=== PATIENT | female | born 1960 | race Caucasian/White ===

== ENCOUNTER → 2020-10-02 13:17 | Outpatient (BNVA) | payer OTHER, SELFPAY | PROVIDERS: PCP Internal Medicine; Visit Provider Physician Assistant | DX: S63.501A Unspecified sprain of right wrist, initial encounter (principal); S93.402A Sprain of unspecified ligament of left ankle, initial encounter; Y08.89XA Assault by other specified means, initial encounter | CPT/HCPCS: 73110; 73630; 99203 ==

== ENCOUNTER → 2020-10-11 14:02 | Outpatient (BNVA) | payer OTHER, SELFPAY | PROVIDERS: PCP Internal Medicine; Visit Provider Physician Assistant Medical | DX: S63.501A Unspecified sprain of right wrist, initial encounter (principal); S93.402A Sprain of unspecified ligament of left ankle, initial encounter; X58.XXXA Exposure to other specified factors, initial encounter | CPT/HCPCS: 99213 ==

== ENCOUNTER → 2020-10-18 11:56 | Outpatient (BNVA) | payer OTHER, SELFPAY | PROVIDERS: PCP Internal Medicine; Visit Provider Physician Assistant Medical | DX: S63.501D Unspecified sprain of right wrist, subsequent encounter (principal); S93.402D Sprain of unspecified ligament of left ankle, subsequent encounter; X58.XXXD Exposure to other specified factors, subsequent encounter | CPT/HCPCS: 99213 ==

== ENCOUNTER → 2020-10-25 11:51 | Outpatient (BNVA) | payer OTHER, SELFPAY | PROVIDERS: PCP Internal Medicine; Visit Provider Physician Assistant Medical | DX: S63.501D Unspecified sprain of right wrist, subsequent encounter (principal); S93.402A Sprain of unspecified ligament of left ankle, initial encounter; X58.XXXA Exposure to other specified factors, initial encounter | CPT/HCPCS: 99213 ==

== ENCOUNTER 2020-11-01 10:21 | Outpatient (REF) | payer OTHER, SELFPAY ==
--- NOTE | ~2020-11-01 | MR_ITS ---
EXAMINATION: MR WRIST WITHOUT CONTRAST, RIGHT CLINICAL INFORMATION: Right wrist twisting injury with persistent pain and paresthesia. Patient reports work injury 09/23/2020 with weakness in naturopath, numbness and tingling in fingers. COMPARISON: XR right wrist 10/02/2020. TECHNIQUE: MRI of the wrist was performed using routine sequences on a high-field scanner. FINDINGS: TRIANGULAR FIBROCARTILAGE: There is mild fraying of the proximal and distal surfaces of the central triangular fibrocartilage. No discrete tear is identified. The ulnar band attachments appear intact. INTRINSIC LIGAMENTS: There is diffuse degenerative irregularity of the scapholunate ligament. This is most prominent in the aza-nm-[id number] aspect where there is also swelling. There may be superimposed fraying. There is no discrete full-thickness tear. The lunotriquetral ligament is not well seen but no discrete tear is identified. TENDONS/MEDIAN NERVE: Intact. ARTICULAR CARTILAGE/BONE: Intact. JOINT FLUID/SOFT TISSUES: Within normal limits. MR/MR wrist RT wo con IMPRESSION: 1. Mild swelling of the proximal and distal surfaces of the central triangular fibrocartilage. No discrete tear. 2. Moderate degenerative irregularity of the scapholunate ligament with some swelling of the tcg-wx-ymikz aspect. Possible superimposed fraying. No definite discrete tear.
== END 2020-11-01 10:22 | disposition home or self-care (01) ==
LOC: HO.MRI 10:21
PROVIDERS: Visit Provider Internal Medicine
DX: M25.531 Pain in right wrist (principal); R20.2 Paresthesia of skin
CPT/HCPCS: 73221

== ENCOUNTER → 2020-11-08 10:39 | Outpatient (BNVA) | payer OTHER, SELFPAY | PROVIDERS: PCP Internal Medicine; Visit Provider Physician Assistant Medical | DX: S69.91XD Unspecified injury of right wrist, hand and finger(s), subsequent encounter (principal); S93.402D Sprain of unspecified ligament of left ankle, subsequent encounter; X58.XXXD Exposure to other specified factors, subsequent encounter; R60.1 Generalized edema | CPT/HCPCS: 99213 ==

== ENCOUNTER → 2020-11-20 10:26 | Outpatient (BNVA) | payer OTHER, SELFPAY | PROVIDERS: Visit Provider Orthopaedic Surgery | DX: M25.531 Pain in right wrist (principal) | CPT/HCPCS: 99202 ==

== ENCOUNTER → 2020-11-22 11:55 | Outpatient (BNVA) | payer OTHER, SELFPAY | PROVIDERS: Visit Provider Physician Assistant Medical | DX: S69.91XD Unspecified injury of right wrist, hand and finger(s), subsequent encounter (principal); S93.402D Sprain of unspecified ligament of left ankle, subsequent encounter; S63.591D Other specified sprain of right wrist, subsequent encounter; X58.XXXD Exposure to other specified factors, subsequent encounter | CPT/HCPCS: 99213 ==

== ENCOUNTER → 2020-12-06 11:25 | Outpatient (BNVA) | payer OTHER, SELFPAY | PROVIDERS: Visit Provider Physician Assistant Medical | DX: S93.402D Sprain of unspecified ligament of left ankle, subsequent encounter (principal); S69.91XD Unspecified injury of right wrist, hand and finger(s), subsequent encounter; X58.XXXD Exposure to other specified factors, subsequent encounter | CPT/HCPCS: 99213 ==

== ENCOUNTER 2020-12-12 11:00 | Outpatient (RCR) | payer OTHER, SELFPAY ==
--- NOTE | 2020-10-11 16:14 | MHC.PT.EP ---
[facility] Office [place] Office [place] Office [address] Zeenat Vieira [address] [phone] F: [phone] F: [phone] F: [phone] F: [phone] Physical Therapy Plan of Care Date of Evaluation: Date of Surgery: 09/23/20 Diagnosis: L ankle sprain Assessment: pt appears to have hyperplantarflexion injury w/ inversion sprain component. pt presents to physical therapy with pain, decreased range of motion, decreased strength, impaired functional mobility, impaired postural awareness, and gait deviations. pt is a good candidate for skilled PT due to age, potential remediation of impairments, typical disease/condition progression and prognosis, comorbidities, and motivation. pt would benefit from tailored strengthening and stretching exercise program, functional training, gait training, postural re-training, neuromuscular re-education, modalities as needed for pain, equipment safety demonstration. Frequency and Duration: The patient will be seen 2x/wk for 6 wks Short Term Goals: pt will be I w/ HEP to promote self-management of condition. pt will improve L ankle dorsiflexion to neutral to remediate gait impairments on even ground. Residential Goals: pt will report a statistically significant improvement in her self-reported outcome measure, LEFI, to promote return to PLOF. pt will report <1/10 L ankle pain w/ >2500' of ambulation w/ LRAD to promote pain-free return to work. Treatment Plan: Modalities to reduce pain, spasms and effusion. Manual therapy to restore motion and function. Therapeutic exercise to improve strength and flexibility. Neuromuscular re-education for posture and balance. Therapeutic activities to return to functional activities of daily living. Electronically signed by: Leola Gutierres PT, DPT Please sign and return to therapist. Thank you for your referral.
--- NOTE | 2021-01-01 11:24 | MHC.PT.DC ---
[facility] Office [place] Office [place] Office [address] Zeenat Vieira [address] [phone] F: [phone] F: [phone] F: [phone] F: [phone] Physical Therapy Discharge Report Diagnosis: L ankle sprain Date of Surgery: 09/23/20 DOI Date of Evaluation: 10/11/20 Date of Discharge: 01/01/21 Treatments to Date: 11 Cancellations to Date: 8 No Shows to Date: 1 Discharge Status: Visit Non-compliance Discharge Summary: The patient has not followed up with any further appointments in three weeks. She was still reporting high levels of pain limiting her ability to ambulate and perform activities around her home. She is discharged from this physical therapy plan of care due to visit non-compliance. Electronically signed by: Leola Gutierres PT, DPT Please sign and return to therapist. Thank you for your referral.
== END 2021-01-01 11:24 | disposition home or self-care (01) ==
LOC: HO.PT 11:00
PROVIDERS: Visit Provider Physician Assistant Medical
DX: S93.402A Sprain of unspecified ligament of left ankle, initial encounter (principal)
CPT/HCPCS: 97110; 97161; 97164; 97530

== ENCOUNTER 2020-12-18 14:12 | Outpatient (REF) | payer OTHER, SELFPAY ==
--- NOTE | ~2020-12-18 | MR_ITS ---
EXAMINATION: MR ANKLE, LEFT CLINICAL INFORMATION: Pain of left ankle and foot. History of twisting injury 09/23/2020. The patient reports pain predominantly along the top of the foot to ankle. COMPARISON: Radiographs of the foot from 10/02/2020. TECHNIQUE: Noncontrast multiplanar, multisequence MR imaging examination of the ankle and proximal foot was performed on a high-field magnet. FINDINGS: TENDONS: The Achilles tendon is normal. No tendon tear or retrocalcaneal bursitis. No inflammation within Kager's fat pad. The peroneal, flexor, extensor and tibialis tendons are intact. Small amount of fluid is present within the flexor hallucis longus tendon sheath as it courses around the region of the ankle, and the tendon sheath fluid is observed to the level of Chalino's knot. This amount of fluid in the tendon sheath can represent normal variation and does not necessarily indicate tenosynovitis. PLANTAR FASCIA: Normal. LIGAMENTS: At the lateral ankle, the talofibular and calcaneofibular ligaments are intact. At the medial ankle, the superficial and deep deltoid ligaments are intact. The spring ligament complex is normal. The bifurcated ligament and Lisfranc ligament are unremarkable. BONES, JOINTS, ARTICULAR CARTILAGE: Bones have normal alignment at the ankle and examined foot. Articular cartilage of the ankle is preserved. No bone bruise, osteochondral fracture, or ankle joint effusion. No tarsal coalition. No fracture or subluxation at the Chopart or Lisfranc joints. SINUS TARSI, TARSAL TUNNEL, SOFT TISSUES: The fat planes of the sinus tarsi are well preserved. The ligaments of the sinus tarsi are intact. Also, fat planes are maintained within the tarsal tunnel. No evidence of ganglion cyst or other soft tissue mass. MR/MR ankle LT wo con IMPRESSION: No specific source of pain is detected. No evidence of ankle ligamentous injury, bone bruise or fracture. No evidence of tendon injury or inflammatory changes of the dorsal soft tissues of the foot or ankle.
== END 2020-12-18 14:13 | disposition home or self-care (01) ==
LOC: HO.MRI 14:12
PROVIDERS: PCP Internal Medicine; Visit Provider Internal Medicine
DX: M25.572 Pain in left ankle and joints of left foot (principal)
CPT/HCPCS: 73721

== ENCOUNTER → 2020-12-20 11:27 | Outpatient (BNVA) | payer OTHER, SELFPAY | PROVIDERS: PCP Internal Medicine; Visit Provider Physician Assistant Medical | DX: S93.401D Sprain of unspecified ligament of right ankle, subsequent encounter (principal); S69.92XD Unspecified injury of left wrist, hand and finger(s), subsequent encounter; X58.XXXD Exposure to other specified factors, subsequent encounter | CPT/HCPCS: 99213 ==

== ENCOUNTER → 2021-01-03 11:34 | Outpatient (BNVA) | payer OTHER, SELFPAY | PROVIDERS: PCP Internal Medicine; Visit Provider Physician Assistant Medical | DX: M79.672 Pain in left foot (principal); S63.501D Unspecified sprain of right wrist, subsequent encounter; X58.XXXD Exposure to other specified factors, subsequent encounter | CPT/HCPCS: 99213 ==

== ENCOUNTER → 2021-01-17 11:58 | Outpatient (BNVA) | payer OTHER, SELFPAY | PROVIDERS: PCP Internal Medicine; Visit Provider Physician Assistant Medical | DX: M79.672 Pain in left foot (principal); S63.501D Unspecified sprain of right wrist, subsequent encounter; X58.XXXD Exposure to other specified factors, subsequent encounter | CPT/HCPCS: 99213 ==

== ENCOUNTER 2021-01-23 10:30 | Outpatient (RCR) | payer OTHER, SELFPAY ==
--- NOTE | 2020-12-10 11:25 | MHC.OT.OEV ---
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 She was seen by Dr Holliday for surgical consult, but improving and no surgical intervention needed at this time, ortho notes likely compression of superficial radial nerve. She was also referred for imaging, see below for details. TRIANGULAR FIBROCARTILAGE: There is mild fraying of the proximal and distal surfaces of the central triangular fibrocartilage. No discrete tear is identified. The ulnar band attachments appear intact. INTRINSIC LIGAMENTS: There is diffuse degenerative irregularity of the scapholunate ligament. This is most prominent in the mjo-gx-glpfw aspect where there is also swelling. There may be superimposed fraying. There is no discrete full-thickness tear. The lunotriquetral ligament is not well seen but no discrete tear is identified. TENDONS/MEDIAN NERVE: Intact. ARTICULAR CARTILAGE/BONE: Intact. JOINT FLUID/SOFT TISSUES: Within normal limits. MR/MR wrist RT wo con IMPRESSION: 1. Mild swelling of the proximal and distal surfaces of the central triangular fibrocartilage. No discrete tear. 2. Moderate degenerative irregularity of the scapholunate ligament with some swelling of the ala-bb-vvfew aspect. Possible superimposed fraying. No definite discrete tear. 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 Does lifting (reposition in bed, uses michelle lift) Living Situation, Family and/or Social Support: Lives w/ daughter at home (pt in grad school to be an OT) Current Level of Function and Occupation Self Care, Employment, Leisure: Currently out of work, trouble opening containers (soda bottle tops) Drops items frequently due to weakness Sleep: Difficulty sleeping, wakes w/ numbness in hand/digits Driving: Favors left hand to hold steering wheel Vision: Balance: Pain Assessment Pain Score: 2 Pain Scale Used: Numeric (0 - 10) Pain Location and Description: No pain at rest Tenderness to palpate distal DRUJ and dorsal radial wrist Aggravating Factors: Twisting, heavy use Alleviating Factors: Tylenol Ice Heating pad Skin and Soft Tissue Assessment Skin and Soft Tissue: Comments: Mild edema in dorsal hand Nerve assessment Ulnar Nerve: WFL Median Nerve: WFL Radial Nerve: WFL Comments: Sensory Assessment Temperature: Light Touch: Proprioception: Vibration: Comments: B/L palm 3.61 Right hand dorsum 2.83 Left hand dorsum 3.61 Pt reports intermittent numbness in D1-D3, worse at nighttime Edema Assessment Upper Extremity: Lower Extremity: Comments: B/L wrist distal to ulnar styloid 14.8 cm Mild focal edema to right hand dorsum Dexterity Assessment Dexterity: Comments: Nine Hole Peg Right 25 sec Left 22 sec Special Tests Comments: (-) Finklesteins (-) Fovea press test (-) Scaphoid shift test (-) Piano Mcpherson test (+) Phalen's test AROM(PROM) Strength Cervical Cervical Flexion: Cervical Extension: Cervical Lateral Flexion: Cervical Rotation: Comments: WFL Shoulder Flexion: Extension: Abduction: Internal Rotation: External Rotation: Comments: WFL Flexion: Extension: Abduction: Internal Rotation: External Rotation: Comments: Elbow Flexion: Extension: Pronation: Supination: Comments: WFL Flexion: Extension: Pronation: Supination: Comments: Wrist Flexion: R 72 L 74 Extension: R 62 L 64 Ulnar Deviation: Radial Deviation: Comments: Mild pain w/ wrist extension, radiates dorsally hand to forearm Flexion: Extension: Ulnar Deviation: Radial Deviation: Comments: WFL Thumb Thumb CMC Flexion: Thumb MCP Flexion: Thumb IP Flexion: Radial Abduction: Palmar Abduction: Malaga (Kapandji 0-10): Comments: WFL Digits Index MCP: PIP: DIP: Long MCP: PIP: DIP: Ring MCP: PIP: DIP: Small MCP: PIP: DIP: Comments: WFL Mild intrinsic tightness Gross Grasp: R 30lb L 52lb Lateral Pinch: R 10 L 10 Two-Point Pinch: R 3 L 5 Three-Jaw Praful: R 4 L 10 Comments: Patient Education Primary Language: Frisian Director Financial Analysis Required: No Current Knowledge: Understands information with skills for self-management Teaching Method: Demonstration Handouts Verbal Education Needs Identified on Evaluation: ADL's Disease Information Equipment Use Exercise Pain Safety How did patient/family demonstrate learning? Patient demonstrates Patient verbalizes Barriers to Learning: None Readiness for Learning: Accepting Who was educated? Patient Comments: Plan of Care Assessment: 60 yo female presents about 11 weeks s/p work injury when resident grabbed her wrist and compressed and twisted it while trying to get through a door into the cellar. She was seen in [facility] and referred to [facility] for further assessment. MRI shows mild swelling in central TFCC and mild degenerative changes in scapholunate ligament, but otherwise no acute injuries or need for surgical intervention. On assessment, she does have mild signs and symptoms of dorsal radial superficial sensory nerve compression and mild carpal tunnel compression, also notes waking at night with increased numbness and tingling. Range is grossly WFL, strength is decreased and she reports dropping items. She will benefit from cont'd therapy services to address these issues, with goal of returning to work and full functional use of right hand. 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 Goals: Right gross grasp >50lb Quickdash score <35 pts Pt to return to work duties Progress to active strengthening program of right wrist Frequency and Duration: The patient will be seen 2x/wk for 4 wks Treatment Plan: Therapeutic Exercise Therapeutic Activity Home Exercise Program Splinting Neuro Re-ed Patient Education Desensitization/Sensory Re-ed Edema Control ADL Training Ultrasound Iontophoresis Paraffin Fluidotherapy MHP Cold Packs Soft Tissue Mobilization Kinesiotaping Electronically Signed By: Iliana Chowdhury OTR/L Reviewed/agree with student documentation: N/A Therapist: Please sign and return to therapist, Thank you for your referral.
--- NOTE | 2021-01-02 13:15 | MHC.OT.OP ---
[address] [phone] F: [phone] Occupational Therapy Progress Note Diagnosis: Right wrist strain Date of Evaluation: 12/10/20 Treatments to Date: 7 Subjective: I was thinking it just hasn't gotten any better Pain Score: 4 Pain Location: right wrist and volar forearm, weakness and numbness Objective Measures: Tenderness in volar foreram, possible median nerve compression at FDS Gross grasp 60 lb Functional Dexterity Test: R 28 sec (moderate function) L 26 sec (normal function) Status: Progressing Assessment: Shani continues to have moderate pain in right forearm, also reporting numbness in median and ulnar nerve distribution and c/o hand and UE weakness. She has some improvements in hand tingling w/ nighttime orthosis, but elbow flexion tendencies while sleeping may also be contributing to symptoms. We will continue OT to address neuropathies. 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
--- NOTE | 2021-01-23 10:53 | MHC.OT.DC ---
[address] [phone] F: [phone] Occupational Therapy Discharge Note Provider: Dr Richmond Diagnosis: Right wrist strain Date of Evaluation: 12/10/20 Date of Discharge: 01/23/21 Treatments to Date: 10 Discharge Status: Recommend MD Follow-up Discharge Summary: Shani was referred to OT for right forearm and wrist pain and numbness. She reports comfort w/ orthosis for median nerve and lumbrical involvement. Good carry over w/ HEP, but no significant change in S/S if median nerve injury, possible higher involvement. Electronically Signed By: Iliana Chowdhury, OTR/L Please Sign and return to therapist, thank you for your referral.
== END 2021-01-23 10:54 | disposition home or self-care (01) ==
LOC: HO.OT 10:30
PROVIDERS: Visit Provider Internal Medicine
DX: M25.531 Pain in right wrist (principal)
CPT/HCPCS: 29125; 97033; 97035; 97110; 97165; 97760

== ENCOUNTER → 2021-02-06 10:45 | Outpatient (BNVA) | payer OTHER, SELFPAY | PROVIDERS: PCP Internal Medicine; Visit Provider Physician Assistant Medical | DX: M79.672 Pain in left foot (principal); M25.572 Pain in left ankle and joints of left foot; S69.91XD Unspecified injury of right wrist, hand and finger(s), subsequent encounter; X58.XXXD Exposure to other specified factors, subsequent encounter | CPT/HCPCS: 99213 ==

== ENCOUNTER 2021-03-27 09:02 | Outpatient (REF) | payer OTHER, SELFPAY ==
--- NOTE | 2021-03-27 09:07 | EMG_ITS ---
Right median and ulnar motor and sensory studies were performed. Right radial sensory study was performed and paraspinal muscles were tested. IMPRESSION: Mild right ulnar neuropathy across cubital tunnel. MD BHUMI Gimenez/MARIANNE / [id number]
== END 2021-03-27 09:03 | disposition home or self-care (01) ==
LOC: HO.NEURO 09:02
PROVIDERS: Visit Provider Internal Medicine
DX: S63.521D Sprain of radiocarpal joint of right wrist, subsequent encounter (principal); X50.1XXD Overexertion from prolonged static or awkward postures, subsequent encounter
CPT/HCPCS: 95886; 95909

== ENCOUNTER → 2021-04-15 09:23 | Outpatient (BNVA) | payer OTHER, SELFPAY | PROVIDERS: PCP Internal Medicine; Visit Provider Orthopaedic Surgery | DX: R20.0 Anesthesia of skin (principal); R20.2 Paresthesia of skin | CPT/HCPCS: 99212 ==

== ENCOUNTER → 2021-04-21 10:08 | Outpatient (BNVA) | payer OTHER, SELFPAY | PROVIDERS: PCP Internal Medicine; Visit Provider Internal Medicine | DX: R20.2 Paresthesia of skin (principal) | CPT/HCPCS: 99214 ==

== ENCOUNTER → 2021-05-05 12:56 | Outpatient (BNVA) | payer OTHER, SELFPAY | PROVIDERS: PCP Internal Medicine; Visit Provider Internal Medicine | DX: R20.0 Anesthesia of skin (principal) | CPT/HCPCS: 99213 ==

== ENCOUNTER → 2021-05-20 08:56 | Outpatient (BNVA) | payer OTHER, SELFPAY | PROVIDERS: PCP Internal Medicine; Visit Provider Internal Medicine | DX: G56.21 Lesion of ulnar nerve, right upper limb (principal) | CPT/HCPCS: 99202 ==

== ENCOUNTER → 2021-05-27 12:53 | Outpatient (BNVA) | payer OTHER, SELFPAY | PROVIDERS: PCP Internal Medicine; Visit Provider Internal Medicine | DX: G56.21 Lesion of ulnar nerve, right upper limb (principal) | CPT/HCPCS: 99213 ==

== ENCOUNTER → 2021-06-09 09:08 | Outpatient (BNVA) | payer OTHER, SELFPAY | PROVIDERS: PCP Internal Medicine; Visit Provider Internal Medicine | DX: G56.21 Lesion of ulnar nerve, right upper limb (principal) | CPT/HCPCS: 99213 ==

== ENCOUNTER → 2021-06-24 10:00 | Outpatient (BNVA) | payer OTHER, SELFPAY | PROVIDERS: PCP Internal Medicine; Visit Provider Internal Medicine | DX: G56.21 Lesion of ulnar nerve, right upper limb (principal) | CPT/HCPCS: 99213 ==

== ENCOUNTER 2021-07-01 08:30 | Outpatient (RCR) | payer OTHER, SELFPAY ==
--- NOTE | 2021-06-03 11:58 | MHC.OT.OEV ---
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 DISCHARGED FROM OUTPATIENT OT IN JANUARY 2021 FOR WORK RELATED INJURY INVOLVING MEDIAN AND RADIAL NERVE COMPRESSION. EMG nerve conduction study is positive only for mild right ulnar neuropathy across the cubital tunnel. 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 USING DEONDRE LIFT FOR SOME PATIENTS. AFTER INITIAL RETURN TO WORK (EARLY APRIL 2021), Pt PLACED IN HOMES WITH LIMITED LIFTING NEEDS. HOBBIES: ENJOYS READING, GARDENING, WALKING Living Situation, Family and/or Social Support: LIVES WITH DAUGHTER (CURRENTLY IN GR[employer]CHOOL FOR OT) Current Level of Function and Occupation Self Care, Employment, Leisure: OUT OF WORK. TROUBLE WITH HOLDING BOOK, TABLET AND CELL PHONE IN FLEXED POSITION. TROUBLE WITH LIFTING CASES OF WATER, LAUNDRY BASKET, UNABLE TO LABORATORY CHEMIST 11 LB DOG. DAUGHTER ASSISTING WITH HEAVY LIFTING. PURCHASED SPLINT FROM [employer] WITH POOR FIT, ALSO USING ROLLED TOWEL AT ELBOW JOINT TO PREVENT FLEXION Sleep: USING ROLLED TOWEL TO BLOCK RIGHT ELBOW FROM FLEXING; SEVERE DIFFICULTIES WITH SLEEPING Driving: PAINFUL, INCREASED NUMBNESS TINGLING WHEN RIGHT ELBOW / ARM FLEXED WITH DRIVING Pain Assessment Pain Score: 5-7/10 Pain Scale Used: Numeric (0 - 10) Pain Location and Description: RIGHT ARM: ULNAR DISTRIBUTION OF FOREARM FROM WRIST TO ELBOW SORE, ACHY, PINS AND NEEDLES Aggravating Factors: PROLONGED FLEXED ELBOW - DRIVING, READING BOOKS, PHONE USE; LIFTING AND CARRYING ITMES Alleviating Factors: HEAT, ICE, TYLENOL Sensory Assessment Temperature: Light Touch: Right Impaired Proprioception: Vibration: Comments: REPORTS NUMBNESS AND TINGLING THROUGH SMALL AND RING FINGER THROUGH PALM, FOREARM AND TO MEDIAL ELBOW CONTINUE TO ASSESS SEMMES MANOHAR ASSESSMENT WITH FOLLOW UP SESSIONS DUE TO TIME LIMITATIONS Edema Assessment Upper Extremity: WNL Lower Extremity: Comments: CIRCUMFERENCE AT OLECRANON PROCESS: 23.1 CM B/L'LY Dexterity Assessment Dexterity: WFL Comments: DENIES DIFFICULTIES WITH ADLs AT HOME Special Tests Comments: (-) TINELS AT MEDIAL ELBOW AROM(PROM) Strength Elbow Flexion: Extension: Pronation: Supination: Comments: WFL Flexion: Extension: Pronation: Supination: Comments: Digits Index MCP: PIP: DIP: Long MCP: PIP: DIP: Ring MCP: PIP: DIP: Small MCP: PIP: DIP: Comments: Gross Grasp: R 40, L 52 Lateral Pinch: R 12, L 12 Two-Point Pinch: Three-Jaw Praful: Comments: Patient Education Primary Language: Urdu Residence Hall Director Required: No Current Knowledge: Understands information with skills for self-management Teaching Method: Demonstration Handouts Phone Call Verbal Education Needs Identified on Evaluation: ADL's Disease Information Equipment Use Exercise Pain How did patient/family demonstrate learning? Patient demonstrates Patient verbalizes Barriers to Learning: None Readiness for Learning: Accepting Who was educated? Patient Comments: Plan of Care Assessment: RIRI PRESENTS WITH S/S CONSISTENT WITH CUBITAL TUNNEL SYNDROME. SHE REPORTS INCREASED NUMBNESS AND TINGLING WHEN DOMINANT RIGHT ELBOW IS FLEXED FOR A PROLONGED AMOUNT OF TIME, INCLUDING DRIVING AND SLEEPING. PATIENT REPORTS A 63% LIMITATION PER THE QUICK DASH ASSESSMENT. A LONG ARM ELBOW FLEXION BLOCK SPLINT WAS FABRICATED AT HER EVALUATION, WELL EDUCATION ON JOINT PROTECTION AND ULNAR NERVE GLIDES. ADDITIONAL OT SERVICES ARE WARRANTED TO ACHIEVE OPTIMAL FUNCTIONAL LEVEL AND ALLOW FOR A SAFE RETURN TO WORK WITH FOCUS ON WORK CONDITIONING TASKS. 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 STRENGTH >60 POUNDS DEMO PROPER LIFTING AND CARRYING SKILLS WITH ABOUT 20 POUNDS REPORT <3/10 PAIN WITH IADLs QUICK DASH <50% REPORT MILD NUMBNESS, TINGLING SYMPTOMS REPORT MILD DIFFICULTIES WITH SLEEPING Frequency and Duration: The patient will be seen 2X/WEEK FOR 4 WEEKS Treatment Plan: Therapeutic Exercise Therapeutic Activity Home Exercise Program Splinting Neuro Re-ed Patient Education Desensitization/Sensory Re-ed Edema Control ADL Training Ultrasound NMES Iontophoresis Paraffin Fluidotherapy MHP Cold Packs Joint Mobilization Soft Tissue Mobilization Kinesiotaping Electronically Signed By: EDILBERTO UPTON OTR/L Reviewed/agree with student documentation: N/A Therapist: Please sign and return to therapist, Thank you for your referral.
--- NOTE | 2021-07-09 08:54 | MHC.OT.DC ---
[address] [phone] F: [phone] Occupational Therapy Discharge Note Provider: Thomas Mcneil Diagnosis: R CUBITAL TUNNEL Date of Evaluation: 06/02/21 Date of Discharge: 07/09/21 Treatments to Date: 7 Cancellations to Date: 3 Discharge Status: Improved Function Independent with HEP Discharge Summary: [facility] WAS SEEN IN OUTPATIENT OT IN WHICH AN ELBOW FLEXION BLOCKING SPLINT WAS FABRICATED, INSTRUCTED ON SYMPTOM MANAGEMENT, HEP AND JOINT PROTECTION. Pt WAS TOLERATING THER EX WELL AND USING ORTHOSIS AT NIGHT TO MAINTAIN ELBOW EXTENSION. SHE REPORTED LOW PAIN AND PRODUCED A FUNCTIONAL GRASP/STRENGTH. PATIENT IS BEING TRANSITIONED TO A HOME BASED PROGRAM AT THIS TIME AND AWAITING ORTHO APPOINTMENT WITH [facility] ON 07/25/21. D/C OT SERVICES. Electronically Signed By: LUCIO LOPEZ/iMl Reviewed/agree with student documentation: N/A Therapist: Please Sign and return to therapist, thank you for your referral.
== END 2021-07-09 08:55 | disposition home or self-care (01) ==
LOC: HO.OT 08:30
PROVIDERS: PCP Internal Medicine; Visit Provider Internal Medicine
DX: G56.01 Carpal tunnel syndrome, right upper limb (principal)
CPT/HCPCS: 29105; 97035; 97110; 97140; 97166; 97760

== ENCOUNTER → 2021-07-14 12:57 | Outpatient (BNVA) | payer OTHER, SELFPAY | PROVIDERS: PCP Internal Medicine; Visit Provider Internal Medicine | DX: G56.21 Lesion of ulnar nerve, right upper limb (principal) | CPT/HCPCS: 99213 ==

== ENCOUNTER → 2022-12-01 14:48 | Outpatient (BNVA) | payer OTHER, SELFPAY | PROVIDERS: PCP Internal Medicine; Visit Provider Hospitalist ==

== ENCOUNTER 2023-08-13 12:45 | Outpatient (REF) | payer MEDICARE, OTHER, SELFPAY ==
--- NOTE | ~2023-08-13 | CT_ITS ---
EXAMINATION: CT CHEST WITHOUT CONTRAST CLINICAL INFORMATION: Pulmonary nodule COMPARISON: None available. TECHNIQUE: Multidetector volumetric CT imaging of the chest was done. Axial MIP volume rendering provided. Sagittal and coronal reformatted images were obtained. This CT examination was performed using dose optimization techniques as appropriate, variously including the following: *Automated exposure control *Adjustment of mA and/or kV according to patient size (this includes techniques or standardized protocols for targeted exams where dose is matched to indication/reason for exam; i.e. extremities or head) *Use of iterative reconstruction technique DLP: 146 mGy-cm FINDINGS: ENERGY TRADER: Unremarkable LUNGS: There is single right lower lobe solid nodule measured 0.3 cm image 234 series 5 the rest of lungs are clear. There is a triangular-shaped nodule seen abating the major fissure in the left lower lobe, measured 0.4 cm, most likely benign lymph node. Central airways are patent. Linear atelectasis seen in the left lower lobe and lingula. MEDIASTINUM: The mediastinum is normal. CORONARY ARTERY CALCIFICATION: None visualized on this study. PLEURA: There is no pleural effusion. No pleural mass or thickening. AXILLA: No lymphadenopathy. UPPER ABDOMEN: Liver is of within normal attenuation, without intrahepatic masses or ductal dilatation seen OSSEOUS STRUCTURES: Unremarkable. CT/CT chest wo IV con IMPRESSION: 1. Single solid 0.3 cm nodule in the right lower lobe and a benign-appearing nodule in the left lower lobe, most likely benign lymph node. 2. Linear atelectasis in the lingula and left lower lobe. Per the 2017 revised Fleischner Society guidelines, no routine follow up is necessarily required in low-risk patients, and consideration of [address] is recommended for patients at high-risk for the development of pulmonary neoplasm.
== END 2023-08-13 12:46 | disposition home or self-care (01) ==
LOC: HO.CT 12:45
PROVIDERS: PCP Internal Medicine; Visit Provider Hospitalist
DX: R91.8 Other nonspecific abnormal finding of lung field (principal)
CPT/HCPCS: 71250

== ENCOUNTER 2023-08-19 13:05 | Outpatient (AMB) | payer MEDICARE, OTHER, SELFPAY ==
[2023-08-19 13:10] VITALS: PULSE 90; O2SAT 96; BMI 27.5
--- NOTE | 2023-08-19 13:10 | A.OFFVIS_ITS ---
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 Her symptoms are off and on. The cough is nonproductive in nature. Uknf-nn-joxrrvge severity. She is concerned because of the risk of cancer. Therefore she had an x-ray and subsequently a CT scan of the chest that was personally by me. The CT scan was back in August 2022. Patient has multiple pulmonary nodules noted the largest nodule measuring 4 mm in size in the right side. Other subcentimeter pulmonary nodules noted. The patient needs a repeat CT scan August 2023. The patient also is concerned about mold. She does have known allergies. She did type try Zy rtec but it caused her to have mood changes so therefore she stopped it. I will send her singular. She also has a rescue inhaler. She is going to monitor her peak flows. If she notices that the Singulair is not helpful and she continues to have low peak flows she can always call the office and also on a very maintenance inhaler. Her pulmonary function studies are a reassuring within normal limits no evidence of any obstructive nor restrictive lung disease and diffusing capacity is normal. If everything is well and she is responding well to therapy will follow-up in August after her CT scan. 08/19/2023 the patient is here for a pulmo nary follow-up visit. The patient overall well. She does still have some chest tightness at times. Has some shortness of breath in addition to cough. Cnea-pc-tzpvlscq severity. We did review her last CT scan demonstrating still pulmonary nodules. She does have some atelectasis and scarring but minimal and unchanged. Will go ahead and start her on a maintenance inhaler this time since she continues to be symptomatic. We did go over the instructions on how to use inhaler. The patient should return in a year to repeat the CT scan and make sure the stability of the pulmonary nodules for couple years specially with her smoking history. [facility] Medical History (Updated 08/19/23 @ 13:13 by Jackson Reyes MD) Atelectasis Pulmonary nodules Allergies Dyspnea Chronic cough Social History (Updated 04/15/21 @ 10:06 by Carly Dennison 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: RT handed/ [employer] Review of Systems Const Denies fever(s) ENT Reports nasal congestion Card Denies chest pain and Reports dyspnea on exertion Resp Denies chest congestion, Reports cough, Reports dyspnea on exertion and Denies wheezing GI Reports no additional complaints Musc Reports no additional complaints Skin/Breast Denies rash Neuro Reports no additional complaints Sam/Lymph Denies easy bleeding, Denies easy bruising and Denies lymphadenopathy Aller/Immun Denies wheezing Physical Exam Vital Signs: Last Vital Signs Pulse 90 08/19/23 13:10 Pulse Ox 96 08/19/23 13:10 Oxygen Delivery Method Room Air 08/19/23 13:10 BMI result Body Mass Index 27.5 Const General: comfortable Orientation/consciousness: patient oriented x3 HEENT Head: Yes atraumatic Neck Neck: Yes supple Chest Chest palpation & inspection: normal inspection of the chest Resp Effort & Inspection: normal respiratory effort Auscultation: no wheezes and diminished lung sounds Cardio Rate: regular rate Rhythm: regular rhythm Heart sounds: S1 normal heart sound present and S2 normal heart sound present GI Palpation (GI): Soft to palpation Skin General skin exam: no rashes or lesions noted Neuro General: patient oriented x3 Extrem General: Yes no clubbing, cyanosis or edema Assessment & Plan Assessment & Plan (1) Chronic cough: Code(s): R05.3 - Chronic cough (2) Dyspnea: Code(s): R06.00 - Dyspnea, unspecified Qualifiers: Dyspnea type: dyspnea on exertion Qualified Code(s): R06.09 - Other forms of dyspnea (3) Allergies: Code(s): T78.40XA - Allergy, unspecified, initial encounter Qualifiers: Encounter type: subsequent encounter Qualified Code(s): T78.40XD - Allergy, unspecified, subsequent encounter (4) Pulmonary nodules: Code(s): R91.8 - Other nonspecific abnormal finding of lung field (5) Atelectasis: Comment: both bases, likely some degree of scarring. Could have been the results of covid19 Code(s): J98.11 - Atelectasis Plan continue TRACY as needed continue Singulair continue nasal steroid spray start Breo daily Benzonates as needed for cough continue regular exercise and deep breathing exercises peak flow provided, if no better will call the office to optimize therapy CT chest 1 yr F/U 1 yr Orders: Orders CT chest wo IV con 11 Months R91.8 - Other nonspecific abnormal finding of lung field Medications: New fluticasone furoate-vilanterol 200-25 mcg/dose (Breo Ellipta) 1 inh inhalation DAILY 60 ea 11RF 30 days J45.909 - Unspecified asthma, uncomplicated Coding Level of Care Code Est Pt Level 4 (72163) Diagnoses Chronic cough R05.3 Dyspnea on exertion R06.09 Dyspnea type: dyspnea on exertion Allergy, subsequent encounter T78.40XD Encounter type: subsequent encounter Pulmonary nodules R91.8 Atelectasis J98.11 Time Spent (min) 17
== END 2023-08-19 13:29 | disposition home or self-care (01) ==
PROVIDERS: PCP Internal Medicine; Visit Provider Hospitalist
DX: R05.3 Chronic cough (principal); R06.09 Other forms of dyspnea; T78.40XD Allergy, unspecified, subsequent encounter; R91.8 Other nonspecific abnormal finding of lung field; J98.11 Atelectasis
CPT/HCPCS: 99214

== ENCOUNTER → 2023-08-19 13:05 | Outpatient (BNVA) | payer MEDICARE, OTHER, SELFPAY | PROVIDERS: PCP Internal Medicine; Visit Provider Hospitalist | DX: J98.11 Atelectasis (principal); R91.8 Other nonspecific abnormal finding of lung field; R05.3 Chronic cough; R06.09 Other forms of dyspnea; T78.40XD Allergy, unspecified, subsequent encounter | CPT/HCPCS: 99212 ==

== ENCOUNTER 2024-03-31 12:11 | Outpatient (REF) | payer OTHER, MEDICARE, SELFPAY ==
--- NOTE | ~2024-03-31 | MM_ITS ---
EXAMINATION: MM SCREENING DIGITAL BREAST TOMOSYNTHESIS, BILATERAL CLINICAL INFORMATION: Screening. Asymptomatic. COMPARISON: Mammography: Comparison is made with available priors TECHNIQUE: Digital breast mammography with tomosynthesis is performed in both the craniocaudal and mediolateral oblique views along with computer-aided detection (CAD). FINDINGS: There are scattered areas of fibroglandular density (ACR BI-RADS breast composition Category b). There are no significant masses, abnormal calcifications, or other abnormalities. MM/MM tomosynthesis screening BI IMPRESSION: No mammographic evidence of malignancy. ASSESSMENT: BI-RADS BI-RADS 1 - Negative RECOMMENDATION: Routine annual mammography screening. 1 year F/U This examination should not preclude the clinical evaluation of a suspicious palpable abnormality. This patient's information was entered into a reminder system with a target due date for their next mammogram. Electronically signed by: Nicolasa Puga DO 04/12/2024 04:03 PM EDT
== END 2024-03-31 12:12 | disposition home or self-care (01) ==
LOC: HO.MAMMO 12:11
PROVIDERS: PCP Internal Medicine; Visit Provider Internal Medicine
DX: Z12.31 Encounter for screening mammogram for malignant neoplasm of breast (principal)
CPT/HCPCS: 77063; 77067

== ENCOUNTER → 2024-03-31 12:16 | Outpatient (BNV) | payer OTHER, MEDICARE, SELFPAY | PROVIDERS: PCP Internal Medicine; Visit Provider Internal Medicine | DX: Z12.31 Encounter for screening mammogram for malignant neoplasm of breast (principal) | CPT/HCPCS: 77063; 77067 ==

== ENCOUNTER 2024-07-04 13:01 | Outpatient (REF) | payer MEDICARE, OTHER, SELFPAY ==
--- NOTE | ~2024-07-04 | CT_ITS ---
CLINICAL HISTORY: R91.8 - Other nonspecific abnormal finding of lung field CT chest without contrast Comparison: None Findings: The heart size is normal. The visualized thyroid and mediastinum are unremarkable. Stable 4 mm right lower lobe lung nodule and smaller left perifissural nodule/node. Hzka-yt-hmourhbn bandlike bibasilar lung scarring. No new nodule identified. The upper abdomen is unremarkable. No acute fractures. IMPRESSION: Stable 4 mm right lower lobe lung nodule and smaller left perifissural nodule/node. No new nodule identified. Follow-up per Fleischner society criteria recommended. Fleischner 2017 Guidelines were utilized to develop follow up recommendations for this patient. The full article can be viewed at: https://goo.gl/emmULK Follow up strategies in solid nodules vary depending on patient risk assessment, with patient's classified as high or low risk. Low risk is associated with young age, smaller nodule size, regular margins, and location in an area other than the upper lobe. High risk factors include older age, heavy smoking, emphysema, carcinogen exposure, larger nodule size, irregular or spiculated margins, and upper lobe location. Nodule size and morphology are the dominant factors. Follow up of subsolid nodules (including ground glass and part solid opacities) is different when compared to solid nodules based on risk of malignancy and a longer doubling time in this group. Therefore when follow up is recommended, it is for a longer interval. Also in this group, recommendations may vary depending on a solitary lesion versus multiplicity of lesions. A calculator of estimated risk is available at: https://goo.gl/JEEJEh ##PFU## This document has been electronically signed by: Ena Skelton MD on 07/05/2024 09:34:19
== END 2024-07-04 13:02 | disposition home or self-care (01) ==
LOC: HO.CT 13:01
PROVIDERS: PCP Internal Medicine; Visit Provider Hospitalist
DX: R91.8 Other nonspecific abnormal finding of lung field (principal)
CPT/HCPCS: 71250

== ENCOUNTER → 2024-07-04 13:03 | Outpatient (BNV) | payer MEDICARE, OTHER, SELFPAY | PROVIDERS: PCP Internal Medicine; Visit Provider Radiology Diagnostic Radiology | DX: R91.1 Solitary pulmonary nodule (principal) | CPT/HCPCS: 71250 ==

== ENCOUNTER 2024-07-11 10:13 | Outpatient (AMB) | payer MEDICARE, OTHER, SELFPAY ==
--- NOTE | 2024-07-11 10:15 | A.OFFVIS_ITS ---
Vital Signs 07/11/24 10:16 Height 5 ft 5 in Weight 171 lb 15.369 oz BMI 28.6 BP 120/78 Blood Pressure Location Rt brachial Position Sitting Pulse 78 Pulse Source Pulse Oximeter Pulse Oximetry (%) 96 Oxygen Delivery Method Room Air Intake Visit Reasons: Solitary Pulmonary Nodule Allergies Sulfa (Sulfonamide Antibiotics) [SULFA (SULFONAMIDE ANTIBIOTICS)] Allergy (Severe, Verified 07/11/24 10:19) NAUSEA & VOMITING Sulfa Allergy (Unknown, Uncoded 07/11/24 10:19) nausea and vomiting HPI Comments Details: The patient is a 64 year woman former smoker who apparently was in her usual state health until about a year and a half ago when she started developing a worsening cough and shortness of breath after having COVID. Her symptoms are off and on. The cough is nonproductive in nature. Ftxf-lo-yhhcgswr severity. She is concerned because of the risk of cancer. Therefore she had an x-ray and subsequently a CT scan of the chest that was personally by me. The CT scan was back in August 2022. Patient has multiple pulmonary nodules noted the largest nodule measuring 4 mm in size in the right side. Other subcentimeter pulmonary nodules noted. The patient needs a repeat CT scan August 2023. The patient also is concerned about mold. She does have known allergies. She did type try Zyrtec but it caused her to have mood changes so therefore she stopped it. I will send her singular. She also has a rescue inhaler. She is going to monitor her peak flows. If she notices that the Singulair is not helpful and she continues to have low peak flows she can always call the office and also on a very maintenance inhaler. Her pulmonary function studies are a reassuring within normal limits no evidence of any obstructive nor restrictive lung disease and diffusing capacity is normal. If everything is well and she is responding well to therapy will follow-up in August after her CT scan. 08/19/2023 the patient is here for a pulmonary follow-up visit. The patient overall well. She does still have some chest tightness at times. Has some shortness of breath in addition to cough. Wuyd-sk-aowqcysk severity. We did review her last CT scan demonstrating still pulmonary nodules. She does have some atelectasis and scarring but minimal and unchanged. Will go ahead and start her on a maintenance inhaler this time since she continues to be symptomatic. We did go over the instructions on how to use inhaler. The patient should return in a year to repeat the CT scan and make sure the stability of the pulmonary nodules for couple years specially with her smoking history. 07/11/2024 the patient is here for a pulmonary follow-up visit. Overall the patient has been doing well. She does continue with a cough. At time seems to be a bronchospastic cough. Socc-nh-rpkhffin severity. We did send her Breo which she did not use it. She is interested in starting an inhaler this time. I will send her Wixela just to make it a little more reasonable financially pretty. In the meantime the patient did have a CT scan of the chest that I personally reviewed. While the pulmonary nodules noted on the left hemithorax resolved completely. She still has a 4 mm pulmonary nodule in the right hemithorax. With smoking history the patient does require to have a follow-up in a year's time. She does have underlying allergies as well. She continues to the allergy medicine. She will continue for now. 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/ [employer] Review of Systems Const Denies fever(s) ENT Reports nasal congestion Card Denies chest pain and Reports dyspnea on exertion Resp Denies chest congestion, Reports cough, Reports dyspnea on exertion and Denies wheezing GI Reports no additional complaints Musc Reports no additional complaints Skin/Breast Denies rash Neuro Reports no additional complaints Sam/Lymph Denies easy bleeding, Denies easy bruising and Denies lymphadenopathy Aller/Immun Denies wheezing Physical Exam Vital Signs: Last Vital Signs Pulse 78 07/11/24 10:16 BP 120/78 07/11/24 10:16 Pulse Ox 96 07/11/24 10:16 Oxygen Delivery Method Room Air 07/11/24 10:16 BMI result Body Mass Index 28.6 Const General: comfortable Orientation/consciousness: patient oriented x3 HEENT Head: Yes atraumatic Neck Neck: Yes supple Chest Chest palpation & inspection: normal inspection of the chest Resp Effort & Inspection: normal respiratory effort Auscultation: no wheezes and diminished lung sounds Cardio Rate: regular rate Rhythm: regular rhythm Heart sounds: S1 normal heart sound present and S2 normal heart sound present GI Palpation (GI): Soft to palpation Skin General skin exam: no rashes or lesions noted Neuro General: patient oriented x3 Extrem General: Yes no clubbing, cyanosis or edema Assessment & Plan Assessment & Plan (1) Chronic cough: Code(s): R05.3 - Chronic cough Category: Medical (2) Dyspnea: Code(s): R06.00 - Dyspnea, unspecified Category: Medical Qualifiers: Dyspnea type: dyspnea on exertion Qualified Code(s): R06.09 - Other forms of dyspnea (3) Allergies: Code(s): T78.40XA - Allergy, unspecified, initial encounter Category: Medical Qualifiers: Encounter type: subsequent encounter Qualified Code(s): T78.40XD - Allergy, unspecified, subsequent encounter (4) Pulmonary nodules: Code(s): R91.8 - Other nonspecific abnormal finding of lung field Category: Medical (5) Atelectasis: Comment: both bases, likely some degree of scarring. Could have been the results of covid19 Code(s): J98.11 - Atelectasis Category: Medical Plan continue TRACY as needed continue Singulair continue nasal steroid spray start Wixela daily Benzonates as needed for cough continue regular exercise and deep breathing exercises CT chest 1 yr F/U 1 yr Medications: New fluticasone propion-salmeterol 250-50 mcg/dose (Wixela Inhub) 1 inh inhalation Q12H 60 ea 11RF 30 days Coding Level of Care Code Est Pt Level 4 (19398) Diagnoses Chronic cough R05.3 Dyspnea on exertion R06.09 Dyspnea type: dyspnea on exertion Allergy, subsequent encounter T78.40XD Encounter type: subsequent encounter Pulmonary nodules R91.8 Atelectasis J98.11 Time Spent (min) 16
[2024-07-11 10:16] VITALS: BP 120/78; PULSE 78; O2SAT 96; BMI 28.6
== END 2024-07-11 10:38 | disposition home or self-care (01) ==
PROVIDERS: PCP Internal Medicine; Visit Provider Hospitalist
DX: R05.3 Chronic cough (principal); R06.09 Other forms of dyspnea; T78.40XD Allergy, unspecified, subsequent encounter; R91.8 Other nonspecific abnormal finding of lung field; J98.11 Atelectasis
CPT/HCPCS: 99214

== ENCOUNTER → 2024-07-11 10:13 | Outpatient (BNVA) | payer MEDICARE, OTHER, SELFPAY | PROVIDERS: PCP Internal Medicine; Visit Provider Hospitalist | DX: J98.11 Atelectasis (principal); R91.8 Other nonspecific abnormal finding of lung field; R05.3 Chronic cough; R06.09 Other forms of dyspnea; T78.40XD Allergy, unspecified, subsequent encounter; X58.XXXD Exposure to other specified factors, subsequent encounter | CPT/HCPCS: 99212 ==

== ENCOUNTER 2024-12-27 09:59 | Outpatient (AMB) | payer MEDICARE, OTHER, SELFPAY ==
[2024-12-27 10:05] VITALS: BP 96/70; PULSE 78; O2SAT 96; BMI 28.6
--- NOTE | 2024-12-27 10:05 | MHC.OFFVIS ---
Vital Signs 12/27/24 10:05 Height 5 ft 5 in Weight 171 lb 15.369 oz BMI 28.6 BP 96/70 Blood Pressure Location Lt brachial Position Sitting Pulse 78 Pulse Source Pulse Oximeter Pulse Oximetry (%) 96 Oxygen Delivery Method Room Air Intake Visit Reasons: Solitary Pulmonary Nodule Sustainable Design Coordinator Required: No Accompanied by: Self / Same As Patient Allergies Sulfa (Sulfonamide Antibiotics) (SULFA (SULFONAMIDE ANTIBIOTICS)) Allergy (Severe, Verified 12/27/24 10:09) NAUSEA & VOMITING Sulfa Allergy (Unknown, Uncoded 07/11/24 10:19) nausea and vomiting HPI Comments Details: The patient is a 64 year woman former smoker who apparently was in her usual state health until about a year and a half ago when she started developing a worsening cough and shortness of breath after having COVID. Her symptoms are off and on. The cough is nonproductive in nature. Voiv-yr-hkrhorja severity. She is concerned because of the risk of cancer. Therefore she had an x-ray and subsequently a CT scan of the chest that was personally by me. The CT scan was back in August 2022. Patient has multiple pulmonary nodules noted the largest nodule measuring 4 mm in size in the right side. Other subcentimeter pulmonary nodules noted. The patient needs a repeat CT scan August 2023. The patient also is concerned about mold. She does have known allergies. She did type try Zyrtec but it caused her to have mood changes so therefore she stopped it. I will send her singular. She also has a rescue inhaler. She is going to monitor her peak flows. If she notices that the Singulair is not helpful and she continues to have low peak flows she can always call the office and also on a very maintenance inhaler. Her pulmonary function studies are a reassuring within normal limits no evidence of any obstructive nor restrictive lung disease and diffusing capacity is normal. If everything is well and she is responding well to therapy will follow-up in August after her CT scan. 08/19/2023 the patient is here for a pulmonary follow-up visit. The patient overall well. She does still have some chest tightness at times. Has some shortness of breath in addition to cough. Ebjr-rc-yqhnwohn severity. We did review her last CT scan demonstrating still pulmonary nodules. She does have some atelectasis and scarring but minimal and unchanged. Will go ahead and start her on a maintenance inhaler this time since she continues to be symptomatic. We did go over the instructions on how to use inhaler. The patient should return in a year to repeat the CT scan and make sure the stability of the pulmonary nodules for couple years specially with her smoking history. 07/11/2024 the patient is here for a pulmonary follow-up visit. Overall the patient has been doing well. She does continue with a cough. At time seems to be a bronchospastic cough. Hunw-ac-niuyelnp severity. We did send her Breo which she did not use it. She is interested in starting an inhaler this time. I will send her Wixela just to make it a little more reasonable financially pretty. In the meantime the patient did have a CT scan of the chest that I personally reviewed. While the pulmonary nodules noted on the left hemithorax resolved completely. She still has a 4 mm pulmonary nodule in the right hemithorax. With smoking history the patient does require to have a follow-up in a year's time. She does have underlying allergies as well. She continues to the allergy medicine. She will continue for now. 12/27/2024 the patient is here for pulmonary follow-up visit. Overall the patient is doing okay although she has a worsening cough chest congestion for the last few weeks. Also has some chest tightness. Wixela did not really work well for her. She does not have a rescue inhaler at this time. The patient was found to have significant amount of mold burden her home. She is getting it removed. In the meantime she is concerned for her daughter who has been exposed to the mold as well with respiratory issues. As far as inhalers will switch over to an HFA inhaler. I do believe Symbicort be more effective for her with her significant wheezing. She also has chest congestion evidence of bronchitis on exam so I will send him a Z-Jovon as well. He regards of her pulmonary nodules last CT scan was back in June 2024 with a 4 mm pulmonary nodule. Will plan to repeat the CAT scan in 6 months and have her follow-up then. If she does not improve after adding the Symbicort and also the antibiotic regimen she can always call for further recommendations. [facility] Medical History (Updated 12/27/24 @ 18:06 by Jackson Reyes MD) Asthma Atelectasis Pulmonary nodules Allergies Dyspnea Chronic cough Social History Alcohol intake: never Patient Tobacco Use Status: Former Tobacco user Current occupational status: employed Current occupation: [employer] handed/ [employer] Review of Systems Const Denies fever(s) ENT Reports nasal congestion Card Denies chest pain and Reports dyspnea on exertion Resp Denies chest congestion, Reports cough, Reports dyspnea on exertion and Denies wheezing GI Reports no additional complaints Musc Reports no additional complaints Skin/Breast Denies rash Neuro Reports no additional complaints Sam/Lymph Denies easy bleeding, Denies easy bruising and Denies lymphadenopathy Aller/Immun Denies wheezing Physical Exam Vital Signs: Last Vital Signs Pulse 78 12/27/24 10:05 BP 96/70 12/27/24 10:05 Pulse Ox 96 12/27/24 10:05 Oxygen Delivery Method Room Air 12/27/24 10:05 BMI result Body Mass Index 28.6 Const General: comfortable Orientation/consciousness: patient oriented x3 HEENT Head: Yes atraumatic Neck Neck: Yes supple Chest Chest palpation & inspection: normal inspection of the chest Resp Effort & Inspection: normal respiratory effort and prolonged expiratory phase Auscultation: rhonchi and diminished lung sounds Cardio Rate: regular rate Rhythm: regular rhythm Heart sounds: S1 normal heart sound present and S2 normal heart sound present GI Palpation (GI): Soft to palpation Skin General skin exam: no rashes or lesions noted Neuro General: patient oriented x3 Extrem General: Yes no clubbing, cyanosis or edema Assessment & Plan Assessment & Plan (1) Chronic cough: Code(s): R05.3 - Chronic cough Category: Medical (2) Dyspnea: Code(s): R06.00 - Dyspnea, unspecified Category: Medical Qualifiers: Dyspnea type: dyspnea on exertion Qualified Code(s): R06.09 - Other forms of dyspnea (3) Allergies: Code(s): T78.40XA - Allergy, unspecified, initial encounter Category: Medical Qualifiers: Encounter type: subsequent encounter Qualified Code(s): T78.40XD - Allergy, unspecified, subsequent encounter (4) Pulmonary nodules: Code(s): R91.8 - Other nonspecific abnormal finding of lung field Category: Medical (5) Atelectasis: Comment: both bases, likely some degree of scarring. Could have been the results of covid19 Code(s): J98.11 - Atelectasis Category: Medical (6) Asthma: Code(s): J45.909 - Unspecified asthma, uncomplicated Category: Medical Qualifiers: Asthma severity: moderate Asthma persistence: persistent Asthma complication type: uncomplicated Qualified Code(s): J45.40 - Moderate persistent asthma, uncomplicated Plan start Symbicort with space start Zpack continue Singulair continue nasal steroid spray stopped Wixela daily Fluticasone propionate Benzonates as needed for cough continue regular exercise and deep breathing exercises CT chest 06/2025 F/U 6 months Orders: Orders CT chest wo IV con 06/18/25 R91.8 - Other nonspecific abnormal finding of lung field Medications: New inhalational spacing device (Aerochamber MV spacer) As directed 1 ea 0RF budesonide-formoterol 80-4.5 mcg/actuation 2 puffs inhalation BID 10.2 grams 6RF azithromycin 500 mg PO DAILY 5 tabs 0RF 5 days Coding Level of Care Code Est Pt Level 4 (58885) Diagnoses Chronic cough R05.3 Dyspnea on exertion R06.09 Dyspnea type: dyspnea on exertion Allergy, subsequent encounter T78.40XD Encounter type: subsequent encounter Pulmonary nodules R91.8 Atelectasis J98.11 Moderate persistent asthma without complication J45.40 Asthma severity: moderate Asthma persistence: persistent Asthma complication type: uncomplicated Time Spent (min) 17
== END 2024-12-27 10:42 | disposition home or self-care (01) ==
LOC: HO.HPS 09:59
PROVIDERS: PCP Internal Medicine; Visit Provider Hospitalist
DX: R05.3 Chronic cough (principal); R06.09 Other forms of dyspnea; T78.40XD Allergy, unspecified, subsequent encounter; R91.8 Other nonspecific abnormal finding of lung field; J98.11 Atelectasis; J45.40 Moderate persistent asthma, uncomplicated
CPT/HCPCS: 99214

== ENCOUNTER → 2024-12-27 09:59 | Outpatient (BNVA) | payer MEDICARE, OTHER, SELFPAY | PROVIDERS: PCP Internal Medicine; Visit Provider Hospitalist | DX: R91.8 Other nonspecific abnormal finding of lung field (principal); R05.3 Chronic cough; R06.09 Other forms of dyspnea; J98.11 Atelectasis; J45.40 Moderate persistent asthma, uncomplicated; T78.40XD Allergy, unspecified, subsequent encounter | CPT/HCPCS: 99212 ==

== ENCOUNTER 2025-04-26 11:12 | Outpatient (REF) | payer MEDICARE, OTHER, SELFPAY ==
--- OUTSIDE RECORDS SUMMARY | 2010-04-30 | XMS_ITS | Encounter Summary ---
Author Organization [facility] Address [address] [facility] [address] [place] [address] Phone Care Team Providers Care Yarrow Gatherer Name Role Phone Unavailable Primary Care Provider Unavailabl e Encounter Details Date Type Department Care Team (Late Contact Info) Description 04/30/2010 Hospital Encounter [facility],Outside Imaging [address] [place] [address] System, Provider Not In, [facility] [address] [address] Social History Tobacco Use Types Packs/Day Years Used Date Smoking Tobacco: Never Assessed Education Answer Date Recorded Are you interested [...] Encounters Date Type Department Care Team (Late Contact Info) Description 05/03/2025 11:00 AM EST Office Visit [facility] Neurology [address] [place] [address] Rigoberto Castillo PA-C [address] [facility]rd [place] [address] [phone] (work) [email or web address] documented as of this encounter Procedures Procedure [...]
--- OUTSIDE RECORDS SUMMARY | 2025-04-26 14:06 | XMS_ITS | Encounter Summary ---
Author Organization [facility] Address [address] [place] [address] [place] [address] Phone Care Team Providers Care Team Foreman Name Role Phone Unknown, Unknown Primary Care Provider Vince Malin DO Primary Care Provide r Encounter Details Date Type Department Care Team (Late st Contact Info) Description 05/31/2020 Procedure Pass [address] [place] [address] Social History Tobacco Use Types Packs/Day Years Used Date Smoking Tobacco: Never Assessed Comments Unknown Sex and Gender Information Value Date Recorded Sex Assigned at Not on file Legal Sex Female 3:02 PM EST Gender Identity Not on file Sexual Orientation Not on file documented as of this encounter Plan of Treatment Upcoming Encounters Date Type Department Care Team (Late st Contact Info) Description 05/03/2025 11:00 AM EST Office Visit [facility] Neurology [address] [place] [address] Rigoberto Castillo PA-C [address] [facility], 3rd [place] [address] [email or web address] documented as of this encounter Visit Diagnoses Not on filedocumented in this encounter Care Teams Team Foreman Relationship Specialty Start Date End Date Unknown, Unknown, PCP - General 05/31/20 06/18/20 Vince Petty DO [address] [place] [phone] PCP - General Internal Medicine 06/19/20 documented as of this encounter Additional Source Comments The information contained in this document represents components of the legal health record. It is not the complete legal health record.[facility]
--- OUTSIDE RECORDS SUMMARY | 2025-04-26 14:07 | XMS_ITS | Encounter Summary ---
Author Organization [facility] Address [address] [facility] [address] [place] [phone] Phone Care Team Providers Care Job Captain Name Role Phone Vince Petty Primary Care Provide r Encounter Details Date Type Department Care Team (Late st Contact Info) Description 06/20/2020 Ancillary Orders [facility],Outside Imaging [address] [place] [address] System, Provider Not In, [facility] [address] [address] Social History Tobacco Use Types Packs/Day Years [...] Description 05/03/2025 11:00 AM EST Office Visit [facility] Neurology [address] [place] [address] Rigoberto Castillo PA-C [address] [facility], 3rd [place] [address] [email or web address] documented as of this encounter Results * MRI Brain Outside (No Interpretation) (04/30/2010 12:00 AM EST) Narrative SYSTEMGENERATED, DOCUMENTATION - 06/20/2020 1:43 PM EST This study is for PACS storage only and not for interpretation. us Provider Not In System PhD IMG OUTSIDE IMAGING W /OUT INTERPRETATION Final Result documented in this encounter Visit Diagnoses Not on filedocumented in this encounter Care Teams Job Captain Relationship Specialty Start Date End Date Vince Petty DO [address] [facility] 1 [place] [phone] PCP - General Internal Medicine 06/19/20 documented as of this encounter Additional Source Comments The information contained in this document represents components of the legal health record. It is not the complete legal health record.[facility]
--- OUTSIDE RECORDS SUMMARY | 2025-04-26 14:07 | XMS_ITS | Clinical Summary ---
Author Organization [facility] Address [address] [place] [phone] Phone Care Team Providers Care Commercial Journeyman Electrician Name Role Phone Vince Petty DO Primary Care Provide r Social History Tobacco Use Types Packs/Day Years [...] on file Sexual Orientation Not on file Last Filed Vital Signs Vital Sign Reading Time Taken Comments Blood Pressure - - Pulse - - Temperature - - Respiratory Rate - - Oxygen Saturation - - Inhaled Oxygen Concentration - - Weight 63.5 kg (140 lb) 06/13/2020 11:44 AM EST Height 165.1 cm (5' 5 ) 06/13/2020 11:44 AM EST Body Mass Index 23.3 06/13/2020 11:44 AM EST Plan of Treatment Upcoming Encounters Date Type Department Care Team (Late st Contact Info) Description 05/03/2025 11:00 AM EST Office Visit [facility] Neurology [address] [place] [address] Rigoberto Castillo PA-C [address] [place] [address], [address] [place] [address] [email or web address] Health Maintenance Due Date Last Done Comments Adult Td,Tdap Booster 1961 LIPID PANEL 1961 DEPRESSION SCREENING 1973 SMOKING Hx and SMOKELESS TOBACCO SCREENING 1974 HEPATITIS C SCREENING 1979 HIV ONE-TIME SCREENING (18-6 5 YEARS) 1979 PAP SMEAR 1982 MAMMOGRAM 2001 COLOGUARD 2006 COLONOSCOPY 2006 COLORECTAL CANCER SCREENING 2006 FIT TEST 2006 FOBT 2006 SIGMOIDOSCOPY 2006 VIRTUAL COLONOSCOPY 2006 PNEUMOCOCCAL VACCINES (50+ years) (1 of 1 - PCV) 2011 ZOSTER VACCINES (1 of 2) 2011 INFLUENZA VACCINE (#1) 2025 0, 06/21/2019, 03/10/2016 COVID-19 VACCINE (2 - 2024-2 6 season) 2025 09/14/2020 RSV VACCINE (1 - 1-dose 75+ series) 2036 HEPATITIS A VACCINES Aged Out No long er eligible based on patient's age to complete this topic HIB VACCINES Aged Out No longer eligi ble based on patient's age to complete this topic IPV VACCINES Aged Out No longer eligi ble based on patient's age to complete this topic MENINGOCOCCAL VACCINES (ACWY) Aged Out No longer eligible based on patient's age to complete this topic MENINGOCOCCAL VACCINES (B) Aged Out N o longer eligible based on patient's age to complete this topic Medical Devices Not on file Insurance MEDICARE PART A & [place] [address] [place] [address] MEDICARE SUPPLEMENT MEDICARE PART A & B Member Subscriber Plan / Payer (Ef fective 2023-) Name:Shani Gonzalez Member ID:[id number] Relation to Subscriber:Self Name:Shani Gonzalez Subscriber ID:[id number] Payer ID:[id number] Group ID:Not on file Type:Medicare Address: [employer] [address] [place] [address] [place] [address] MEDICARE SUPPLEMENT [facility] MEDICARE [place] [address] [address] [place] [address] MEDICARE SUPPLEMENT [place] PART A [place] [id number] [facility] MEDICARE SUPPLEMENT [facility] MEDICARE SUPPLEMENT MEDICARE PART A & B [facility] MEDICARE SUPPLEMENT MEDICARE PART A & B Member Subscriber Plan / Payer (Ef fective 2023-) Name:Shani Gonzalez Member ID:[id number] Relation to Subscriber:Self Name:Shani Gonzalez Subscriber ID:[id number] Payer ID:[id number] Group ID:Not on file Type:Medicare Address: [employer] [address] MEDICARE SUPPLEMENT MEDICARE PART A & B MEDICARE SUPPLEMENT Care Teams Commercial Journeyman Electrician Relationship Specialty Start Date End Date Vince Petty DO [address] [phone] PCP - General Internal Medicine 06/19/20 Additional Source Comments The information contained in this document represents components of the legal health record. It is not the complete legal health record.[facility]
== END 2025-04-26 11:13 | disposition home or self-care (01) ==
LOC: HO.MAMMO 11:12
PROVIDERS: PCP Internal Medicine; Visit Provider Internal Medicine
DX: Z12.31 Encounter for screening mammogram for malignant neoplasm of breast (principal)
CPT/HCPCS: 77063; 77067

== ENCOUNTER → 2025-04-26 11:15 | Outpatient (BNV) | payer MEDICARE, OTHER, SELFPAY | PROVIDERS: PCP Internal Medicine; Visit Provider Internal Medicine | DX: Z12.31 Encounter for screening mammogram for malignant neoplasm of breast (principal) | CPT/HCPCS: 77063; 77067 ==

== ENCOUNTER 2025-06-05 12:37 | Outpatient (REF) | payer MEDICARE, OTHER, SELFPAY ==
--- OUTSIDE RECORDS SUMMARY | 2010-04-30 | XMS_ITS | Encounter Summary ---
Author Organization [facility] Address [address] [facility] [address] [place] [address] Phone Care Team Providers Care Head Animal Keeper Name Role Phone Unavailable Primary Care Provider Unavailabl e Encounter Details Date Type Department Care Team (Late Contact Info) Description 04/30/2010 Hospital Encounter [facility],Outside Imaging [address] [place] [address] System, Provider Not In, [facility] [address] [id number] Social History Tobacco Use Types Packs/Day Years Used Date Smoking Tobacco: Never Education Answer Date Recorded Are you interested in more education? Not on roberto e 10/09/2022 Are you concerned about learning? Not on file 10/09/2022 No 10/09/2022 No 10/09/2022 Digital Access Answer Date Recorded No 11/10/2022 No 11/10/2022 Reliable internet access at home? Not on file 11/10/2022 Device with a working camera? Not on file Comments Unknown Sex and Gender Information Value Date Recorded Sex Assigned at Not on file Legal Sex Female 3:02 PM EST Gender Identity Not on file Sexual Orientation Not on file documented as of this encounter Plan of Treatment Upcoming Encounters Date Type Department Care Team (Late st Contact Info) Description 08/07/2025 11:00 AM EST Office Visit [facility] [address] [place] [address] Rigoberto Castillo PA-C [facility] [address] [place] [address] (work) [email or web address] documented as of this encounter Procedures Procedure Name Priority Date/Time Associated Diagnosis Comments MRI BRAIN OUTSIDE (NO INTERPRETATION) Routine 04/30/2010 12:00 AM EST documented in this encounter Results * MRI Brain Outside (No Interpretation) (04/30/2010 12:00 AM EST) Narrative SYSTEMGENERATED, DOCUMENTATION - 06/20/2020 1:43 PM EST This study is for PACS storage only and not for interpretation. us Provider Not In System PhD IMG OUTSIDE IMAGING W /OUT INTERPRETATION Final Result documented in this encounter Visit Diagnoses Not on filedocumented in this encounter Additional Source Comments The information contained in this document represents components of the legal health record. It is not the complete legal health record.[facility]
--- NOTE | ~2025-06-05 | CT_ITS ---
EXAMINATION: CT CHEST WITHOUT IV CONTRAST INDICATION: R91.8 - Other nonspecific abnormal finding of lung field COMPARISON: Comparison is made with the prior examination dated 07/04/2024. TECHNIQUE: Helical CT scan of the chest was performed without intravenous contrast. Coronal and sagittal reformatted images were generated and reviewed. This CT exam was performed with one or more of the following dose reduction techniques: automated exposure control, adjustment of the mA and/or kV according to patient size, use of iterative reconstruction technique. DLP: 139 mGy-cm CHEST: THYROID: The thyroid is unremarkable. LUNGS: There is a 3 x 5 mm nodule in the right lower lobe (series 5, image 59) without change. A 3 mm nodule along the left major fissure is unchanged and likely represents an intrapulmonary lymph node. There is scarring in both lower lobes. MEDIASTINUM: There is no mediastinal lymphadenopathy. ANU: Evaluation of the hilar regions is limited by lack of intravenous contrast material. CARDIOVASCULATURE: The heart is normal in size. There is no pericardial effusion. The thoracic aorta is normal in caliber. DEGREE OF CORONARY CALCIFICATION: none PLEURA: There is no pleural effusion. No pneumothorax. MAIN AIRWAYS: The mainstem bronchi and proximal branches are patent. AXILLA: There is no axillary lymphadenopathy. BONES AND SOFT TISSUES: Unremarkable UPPER ABDOMEN: The liver demonstrates decreased attenuation, consistent with steatosis. The visualized portions of the spleen and adrenals have an unremarkable unenhanced appearance. CT/CT chest wo IV con IMPRESSION: 1. Stable subcentimeter pulmonary nodules as described. 2. Hepatic steatosis. Electronically signed by: Hipolito Lundberg MD 06/05/2025 01:40 PM [facility]
--- OUTSIDE RECORDS SUMMARY | 2025-06-05 13:38 | XMS_ITS | Encounter Summary ---
Author Organization [facility] Address [address] [facility] [address] [place] [phone] Phone Care Team Providers Care Pile Driving Superintendent Name Role Phone Vince Petty Primary Care Provide r Encounter Details Date Type Department Care Team (Late st Contact Info) Description 06/20/2020 Ancillary Orders [facility],Outside Imaging [address] [place] [address] System, Provider Not In, [facility] [address] [address] Social History Tobacco Use Types Packs/Day Years [...] Description 08/07/2025 11:00 AM EST Office Visit [facility] [address] [place] [address] Rigoberto Castillo PA-C [address] [facility], 3rd [place] [address] [email or web address] documented as of this encounter Results * MRI Brain Outside (No Interpretation) (04/30/2010 12:00 AM EST) Narrative SYSTEMGENERATED, DOCUMENTATION - 06/20/2020 1:43 PM EST This study is for PACS storage only and not for interpretation. us Provider Not In System PhD IMG OUTSIDE IMAGING W /OUT INTERPRETATION Final Result documented in this encounter Visit Diagnoses Not on filedocumented in this encounter Care Teams Pile Driving Superintendent Relationship Specialty Start Date End Date Vince Petty DO [address] [facility] 1 [place] [phone] PCP - General Internal Medicine 06/19/20 documented as of this encounter Additional Source Comments The information contained in this document represents components of the legal health record. It is not the complete legal health record.[facility]
--- OUTSIDE RECORDS SUMMARY | 2025-06-05 13:38 | XMS_ITS | Clinical Summary ---
Author Organization [facility] Address [address] [address] Phone Care Team Providers Care Platinum And Palladium Kettle Tender Name Role Phone Dino Pettyashleycase Hansen DO Primary Care Provide r Allergies Active Allergy Reactions Criticality Noted Date Comments Sulfa (Sulfonamide Antibiotics) Nausea and/or Vomiting 11/17/2022 Medications fluticasone propionate (FLONASE) 50 mcg/actuation nasal spray SPRAY 2 SPRAYS INTRANASALLY DAILY 02/11/20 25 Active ondansetron (ZOFRAN-ODT) 4 MG disintegrating tablet take 1 tablet by mouth three times a day for 5 days 02/13/20 25 Active gabapentin (NEURONTIN) 100 MG capsule Take 1 capsule (100 mg total) by mouth 3 (three) times a day. 90 capsule 11 05/03/20 25 Active Encounters Date Type Department Care Team Description 05/03/2025 11:00 AM EST Office Visit [facility] [address] [place] [address] Rigoberto Castillo PA-C Multifactorial peripheral neuropathy (Primary Dx) from Last 3 Months Social History Tobacco Use Types Packs/Day Years Used Date Smoking Tobacco: Never Tobacco Cessation:Counseling Given: Not Answered Education Answer Date Recorded Are you interested [...] Sign Reading Time Taken Comments Blood Pressure 122/64 05/03/2025 11:19 AM EST Pulse 68 05/03/2025 11:19 AM EST Temperature - - Respiratory Rate - - Oxygen Saturation 97% 05/03/2025 11:19 AM EST Inhaled Oxygen Concentration - - Weight 63.5 kg (140 lb) 06/13/2020 11:44 AM EST Height 165.1 cm (5' 5 ) 06/13/2020 11:44 AM EST Body Mass Index 23.3 06/13/2020 11:44 AM EST Plan of Treatment Upcoming Encounters Date Type Department Care Team (Late st Contact Info) Description 08/07/2025 11:00 AM EST Office Visit [facility] [address] [place] [address] Rigoberto Castillo PA-C 22 [facility], [address]rd [place] [address] Health Maintenance Due Date Last Done Comments Adult Td,Tdap Booster 1961 LIPID PANEL 1961 DEPRESSION SCREENING 1973 HEPATITIS C SCREENING 1979 HIV ONE-TIME SCREENING (18-6 5 YEARS) 1979 PAP SMEAR 1982 SMOKING STATUS SCREENING (On ce After 26 Yrs) 1987 MAMMOGRAM 2001 COLOGUARD 2006 COLONOSCOPY 2006 COLORECTAL [...] this topic Medical Devices Not on file Procedures Procedure Name Priority Date/Time Associated Diagnosis Comments SEDIMENTATION RATE (ESR) Routine 025 2:50 PM EST Allergic rhinitis, unspecified seasonality, unspecified trigger Fatigue, unspecified type IMMUNOGLOBULIN E, TOTAL Routine 04/27/20 25 2:50 PM EST Allergic rhinitis, unspecified seasonality, unspecified trigger Fatigue, unspecified type HELMINTHOSPORIUM HALODES, IGE Routine 04/27/2025 2:50 PM EST Allergic rhinitis, unspecified seasonality, unspecified trigger Fatigue, unspecified type CLADOSPORIUM HERBARUM, IGE Routine 04/27/2025 2:50 PM EST Allergic rhinitis, unspecified seasonality, unspecified trigger Fatigue, unspecified type ASPERGILLUS FUMIGATUS, IGE Routine 04/27/2025 2:50 PM EST Allergic rhinitis, unspecified seasonality, unspecified trigger Fatigue, unspecified type ALTERNARIA TENIUS (ALTERNATA), IGE Routine 04/27/2025 2:50 PM EST Allergic rhinitis, unspecified seasonality, unspecified trigger Fatigue, unspecified type VINCE PANEL Routine 04/27/2025 2:50 PM EST Allergic rhinitis, unspecified seasonality, unspecified trigger Fatigue, unspecified type ANTI-NEUTROPHIL CYTOPLASMIC ANTIBODY (ANCA) Routine 04/27/2025 2:50 PM EST Allergic rhinitis, unspecified seasonality, unspecified trigger Fatigue, unspecified type HYPERSENSITIVITY PNEUMONITIS PANEL Routine 04/27/2025 2:50 PM EST Allergic rhinitis, unspecified seasonality, unspecified trigger Fatigue, unspecified type THYROPEROXIDASE (TPO) ANTIBODIES Routine 04/27/2025 2:50 PM EST Allergic rhinitis, unspecified seasonality, unspecified trigger Fatigue, unspecified type from Last 3 Months Results * Immunoglobulin E, Total (04/27/2025 2:50 PM EST) Immunoglobulin E, Total 3 0 - 100 IU/ml 04/30/2025 2:59 AM EST [facility] Blood (Blood) Venipuncture / Unknown 04/27/2025 2:50 PM EST 04/27/2025 2:51 PM EST Narrative [facility] - 04/30/2025 2:59 AM EST Some individuals with allergies have low total IgE but high concentration of allergen-specific IgE and may even suffer anaphylaxis with low to undetectable concentrations of IgE or allergen-specific IgE antibodies. Gabriel Canales DO LAB BLOOD BKR ORDERABLES Fin al Result [address] [address] * (ABNORMAL) Hypersensitivity Pneumonitis Panel (04/27/2025 2:50 PM EST) Alternaria tenuis/alternata IgG 3.8 <12.0 mcg/mL 05/02/2025 4:21 PM EST [facility] - SEE TEST RESULT COMMENT Aspergillus fumigatus IgG 15.4 <46.0 mcg/mL 05/02/2025 4:21 PM EST [facility] - SEE TEST RESULT COMMENT Aureobasidium pullulans IgG <2.0 <18.0 mcg/mL 05/02/2025 4:21 PM EST [facility] - SEE TEST RESULT COMMENT Laceyella sacchari IgG 39.2(H) <25.0 mcg/mL 05/02/2025 4:21 PM EST [facility] - SEE TEST RESULT COMMENT Micropolyspora faeni IgG <2.0 <5.0 mcg/mL 05/02/2025 4:21 PM EST [facility] - SEE TEST RESULT COMMENT Penicillium Chrysogenum IgG 11.4 <22.0 mcg/mL 05/02/2025 4:21 PM EST [facility] - SEE TEST RESULT COMMENT Phoma betae IgG 3.3 <8.0 mcg/mL 05/02/2025 4:21 PM EST [facility] - SEE TEST RESULT COMMENT Trichoderma viride IgG 6.2 <10.0 mcg/mL 05/02/2025 4:21 PM EST [facility] - SEE TEST RESULT COMMENT Comment: Antibody levels greater than the reference range indicate that the patient has been immunologically sensitized to the antigen. The significance of elevated IgG depends on the nature of the antigen and the patient's clinical history. The test method was the [employer] ImmunoCAP. *This test was developed and its performance characteristics determined by [employer]. It has not been cleared or approved by the U.S. Food and Drug Administration. FLAG Interpretation: A = Abnormal, H = High, L = Low Test Performed by: [employer] [id number] [place] [address] Blood (Blood) Venipuncture / Unknown 04/27/2025 2:50 PM EST 04/27/2025 2:51 PM EST Gabriel Canales DO LAB BLOOD BKR ORDERABLES Fin al Result DAVID KIMBLE) [facility] - SEE TEST RESULT COMMENT * Vince Panel (04/27/2025 2:50 PM EST) Cubero Sera Negative 05/18/2025 2:10 PM EST [facility] - SEE TEST RESULT COMMENT Cubero DE Negative 05/18/2025 2:10 PM EST [facility] - SEE TEST RESULT COMMENT Cockatiel Negative 05/18/2025 2:10 PM EST [facility] - SEE TEST RESULT COMMENT Parakeet Negative 05/18/2025 2:10 PM EST [facility] - SEE TEST RESULT COMMENT Parrot Negative 05/18/2025 2:10 PM EST [facility] - SEE TEST RESULT COMMENT Comment: ADDITIONAL INFORMATION This result must be correlated with patients clinical response and should not solely be considered in the diagnosis. Test Performed by: [facility] Allergy-Immunology [facility] [address] [place] [address] Blood (Blood) Venipuncture / Unknown 04/27/2025 2:50 PM EST 04/27/2025 2:51 PM EST [facility] DO LAB BLOOD BKR ORDERABLES Fin al Result [facility] (BEAKER) [facility] - SEE TEST RESULT COMMENT See Address in Comment * Helminthosporium halodes, IgE (04/27/2025 2:50 PM EST) Helminthosporium halodes, IgE <0.10 <0.10 kU/L 05/01/2025 2:50 PM EST [facility] Blood (Blood) Venipuncture / Unknown 04/27/2025 2:50 PM EST 04/27/2025 2:51 PM EST [employer] DO LAB BLOOD BKR ORDERABLES Fin al Result Performing Organization Address [facility] Co de Phone Number [facility] [address] [place] [address] * Cladosporium herbarum, IgE (04/27/2025 2:50 PM EST) Cladosporium herbarum, IgE <0.10 <0.10 kU/L 05/01/2025 2:49 PM EST [facility] Blood (Blood) Venipuncture / Unknown 04/27/2025 2:50 PM EST 04/27/2025 2:51 PM EST [employer] DO LAB BLOOD BKR ORDERABLES Fin al Result Performing Organization Address City/[facility]/ZIP Co de Phone Number [facility] [address] [place] [address] * Aspergillus fumigatus, IgE (04/27/2025 2:50 PM EST) Aspergillus fumigatus, IgE <0.10 <0.10 kU/L 05/01/2025 2:39 PM EST [facility] Blood (Blood) Venipuncture / Unknown 04/27/2025 2:50 PM EST 04/27/2025 2:51 PM EST [email or web address] DO LAB BLOOD BKR ORDERABLES Fin al Result [facility] [address] [place] [address] * Alternaria tenius (alternata), IgE (04/27/2025 2:50 PM EST) Alternaria tenius (alternata), IgE <0.10 <0.10 kU/L 05/01/2025 2:39 PM EST [facility] Blood (Blood) Venipuncture / Unknown 04/27/2025 2:50 PM EST 04/27/2025 2:51 PM EST [employer] LAB BLOOD BKR ORDERABLES Fin al Result Performing Organization Address [facility] Co de Phone Number [facility] [address] [place] [phone] * (ABNORMAL) Thyroperoxidase (TPO) Antibody (04/27/2025 2:50 PM EST) Thyroperoxidase Ab, S 126.9(H) <9.0 IU/mL 04/30/2025 3:17 PM EST [facility] Blood (Blood) Venipuncture / Unknown 04/27/2025 2:50 PM EST 04/27/2025 2:51 PM [email or web address] ORDER[facility]LES Fin al Result DAVID KIMBLE) [facility] [address] [place], [place] [address] [phone] * Anti-Neutrophil Cytoplasmic Antibody (ANCA) (04/27/2025 2:50 PM EST) Myeloperoxidase Ab, S <0.2 <0.4 (Negative ) U 04/30/2025 2:21 PM EST [facility] Proteinase 3 Ab (PR3), S <0.2 <0.4 (Negative ) U 04/30/2025 2:21 PM EST [facility] Blood (Blood) Venipuncture / Unknown 04/27/2025 2:50 PM EST 04/27/2025 2:51 PM EST [email or web address] LAB BLOOD BKR ORDERABLES Fin al Result [facility] (BEAKER) [facility] [address] [phone] * Erythrocyte Sedimentation Rate (ESR) (04/27/2025 2:50 PM EST) Pathologist [facility] ESR 12 0 - 30 mm/h 04/27/2025 7:13 PM EST [facility] Blood (Blood) Venipuncture / Unknown 04/27/2025 2:50 PM EST 04/27/2025 2:51 PM EST [employer] LAB BLOOD BKR ORDERABLES Fin al Result [address] [phone] from Last 3 Months Insurance MEDICARE PART A & B Member Subscriber Plan / Payer (Ef fective 2023-Present) Name:Shani Gonzalez Member ID:[id number] Relation to Subscriber:Self Name:Shani Gonzalez Subscriber ID:[id number] Payer ID:[id number] Group ID:Not on file Type:Medicare Address: [employer] [address] MEDICARE SUPPLEMENT MEDICARE PART A & B MEDICARE SUPPLEMENT [facility] MEDICARE [place] [place] [address] MEDICARE SUPPLEMENT MEDICARE PART A & B [facility] MEDICARE SUPPLEMENT [facility] MEDICARE SUPPLEMENT MEDICARE PART A & B [facility] MEDICARE SUPPLEMENT MEDICARE PART A & B Member Subscriber Plan / Payer (Ef fective 2023-Present) Name:Shani Gonzalez Member ID:[id number] Relation to Subscriber:Self Name:Shani Gonzalez Subscriber ID:[id number] Payer ID:[id number] Group ID:Not on file Type:Medicare Address: [employer] [address] MEDICARE SUPPLEMENT MEDICARE PART A & B MEDICARE SUPPLEMENT Care Teams Platinum And Palladium Kettle Tender Relationship Specialty Start Date End Date Vince Petty DO [address] [phone] PCP - General Internal Medicine 06/19/20 Additional Source Comments The information contained in this document represents components of the legal health record. It is not the complete legal health record.[facility]
--- OUTSIDE RECORDS SUMMARY | 2025-06-05 13:38 | XMS_ITS | Encounter Summary ---
Author Organization [facility] Address [address] [facility] [address] [place] [phone] Phone Care Team Providers Care Toolroom Attendant Name Role Phone Unknown, Unknown Primary Care Provider Vince Malin DO Primary Care Provide r Encounter Details Date Type Department Care Team (Late st Contact Info) Description 05/31/2020 Procedure Pass [address] [place] [address] Social History Tobacco Use Types Packs/Day Years [...] Description 08/07/2025 11:00 AM EST Office Visit [facility] [address] [place] [address] Rigoberto Castillo PA-C [address] [facility], [address]rd [place] [address] [email or web address] documented as of this encounter Visit Diagnoses Not on filedocumented in this encounter Care Teams Toolroom Attendant Relationship Specialty Start Date End Date Unknown, Unknown, PCP - General 05/31/20 06/18/20 Vince Petty DO [address] [place] [phone] PCP - General Internal Medicine 06/19/20 documented as of this encounter Additional Source Comments The information contained in this document represents components of the legal health record. It is not the complete legal health record.[facility]
== END 2025-06-05 12:38 | disposition home or self-care (01) ==
LOC: HO.CT 12:37
PROVIDERS: PCP Internal Medicine; Visit Provider Hospitalist
DX: R91.8 Other nonspecific abnormal finding of lung field (principal)
CPT/HCPCS: 71250

== ENCOUNTER → 2025-06-05 12:38 | Outpatient (BNV) | payer MEDICARE, OTHER, SELFPAY | PROVIDERS: PCP Internal Medicine; Visit Provider Radiology Diagnostic Radiology | DX: R91.8 Other nonspecific abnormal finding of lung field (principal); K76.0 Fatty (change of) liver, not elsewhere classified | CPT/HCPCS: 71250 ==